=== PATIENT | male | born 1995 | race African-American/Black ===

== ENCOUNTER 2019-05-08 13:51 | Emergency (ER) | payer MEDICAID ==
[~2019-05-08] VITALS: Ht 190.5 cm; Wt 86.2 kg
[~2019-05-08 13:51] MED LIST: KEPPRA500 M4 ORAL; LORazepam Inj 2mg/ml 1ml IV ONE; levETIRAcetam 500 MG in D5W 110 ML IV ONE
--- NOTE | 2019-05-08 14:00 | NUR ---
ED Nurse Note: Pt came into ED from having a seizure today around 0400, lasting 1 minute. Pt states he lost consciousness, but was lying in bed when sizure occurred. Pt denies hitting head, biting tongue, RUDOLPH, nausea, pain. Pt is currently alert and orientedx4, awake, but occasionally falls asleep and become very drowsy. Pt is arousable to name. Pt is set up on monitor.
[2019-05-08 14:05] VITALS: BP 134/75
[2019-05-08 14:25] LABS: APPEARANCE,URINE CLEAR; BILIRUBIN, URINE NEGATIVE (NEGATIVE); COLOR,URINE PALE YELLOW; GLUCOSE, URINE (UA) NEGATIVE (NEGATIVE); KETONES,URINE 1+ (NEGATIVE); LEUKOCYTE ESTERASE ,URINE NEGATIVE (NEGATIVE); NITRITE,URINE NEGATIVE (NEGATIVE); PH,URINE 5 (4.5-8.0); PROTEIN,URINE 2+ (NEGATIVE); UROBILINOGEN,URINE NORMAL MG/DL (0.0-1.0)
[2019-05-08] MEDS ORDERED: LORazepam Inj 2mg/ml 1ml ONE (14:28)
[2019-05-08 14:29] LABS: EOSINOPHILS % (AUTO) 0.3 % (0.0-3.0); HEMOGLOBIN 13.8 G/DL (14.2-18.0); LYMPHOCYTES % (AUTO) 17.1 % (20.0-45.0); MEAN CORPUSCULAR VOLUME 86 FL (80-99); MONOCYTES % (AUTO) 10.6 % (1.0-10.0); NEUTROPHILS % (AUTO) 71.1 % (45.0-75.0); PLATELET COUNT 237 K/UL (150-450); RED BLOOD COUNT 4.76 M/UL (4.70-6.10); RED CELL DISTRIBUTION WIDTH 11.3 % (11.6-14.8); WHITE BLOOD COUNT 5.2 K/UL (4.8-10.8)
[2019-05-08] MEDS ORDERED: LEVETIRACETAM IVPB ONE (14:29)
[2019-05-08] MEDS ORDERED: [UNRECOGNIZED DRUG - OTHER] IVPB ONE (14:29)
--- NOTE | 2019-05-08 14:29 | Emergency Room Report ---
History of Present Illness General Chief Complaint: Seizure Source: Patient, Family Member, EMS Present Illness HPI Patient presents post witnessed tonic-clonic seizure. He states he is missed doses of his Keppra. He also drinks alcohol. He denies any trauma. Has a slight headache. His last seizure before today was a month ago. EMS transported the patient. He denies pain to the triage nurse but complains about 2/10 headache which is diffuse. He states he usually gets headaches when he has seizures. Patient denies neck pain, chest pain, nausea, vomiting, diarrhea, dysuria. He has not been eating well. No fevers, chills, sore throat, palpitations, abdominal pain, shortness of breath, joint pain, rashes, depression, anxiety, visual changes, dizziness. Allergies: Coded Allergies: No Known Allergies (Unverified , 05/08/19) Patient History Past Medical History: see triage record Social History: Reports: smoking, alcohol use, drug use Social History Narrative With brother Reviewed Nursing Documentation: PMH: Agreed; PSxH: Agreed Nursing Documentation-PMH Hx Seizures: Yes Review of Systems All Other Systems: negative except mentioned in HPI Physical Exam Vital Signs Date Time Temp Pulse Resp B/P (MAP) Pulse Ox O2 Delivery O2 Flow Rate FiO2 05/08/19 13:41 98.2 102 18 140/80 (100) 98 Room Air Sp02 EP Interpretation: reviewed, normal General Appearance: well appearing, no apparent distress, non-toxic, other - GCS 14 slightly postictal Head: normocephalic Eyes: bilateral eye PERRL, bilateral eye EOMI, bilateral eye Scleral Injection ENT: moist mucus membranes - No lingual trauma Neck: supple, no bony tend Respiratory: chest non-tender, lungs clear, normal breath sounds Cardiovascular #1: regular rate, rhythm, no edema Cardiovascular #2: 2+ radial (R) Gastrointestinal: normal inspection, normal bowel sounds, non tender, no mass, non-distended, scaphoid Genitourinary: no CVA tenderness Musculoskeletal: back normal, normal range of motion, gait/station normal Neurologic: alert, motor strength/tone normal, vmware consultant III-XII nml as tested, oriented - X2, DTRs symmetric, sensory intact, cerebellar normal, speech normal Psychiatric: mood/affect normal, no suicidal/homicidal ideation Skin: no rash, warm/dry Procedures Critical Care Time Critical Care Time Total Critical Care Time: 30 min bedside evaluation and treatment excludes procedures (EKG). Reason for critical care: Treatment of seizures and evaluation of abnormal EKG, discussion with [facility] Possible complications: hypotension, hypertension, [place], shock, arrhythmias, metabolic acidosis, end organ damage, respiratory failure. Interventions: Ativan, Keppra, aspirin, nitro paste, metoprolol. Course: Patient presents post tonic-clonic seizure. Treated with Keppra and Ativan. Labs unremarkable. Abnormal EKG with possible STEMI. Patient treated medically. Fax EKG and discussion with receiving hospital physician. She consulted with her cardiology staff. Consideration of emergent transfer. Discussion with brother and patient. EKG repeated with left ventricular hypertrophy. Troponin return is normal. Repeat evaluation with patient. Consultations: nursing staff, EMS, family, [facility] STEMI team Performed by: Dr. Quintana Tolerated well condition = serious Medical Decision Making Diagnostic Impression: Primary Impression: Seizure Additional Impressions: Cocaine abuse Abnormal EKG ER Course Patient presents post seizure with history of noncompliance. Differential includes breakthrough seizure, electrolyte imbalance, noncompliance others. Patient has a nonfocal neurologic exam at this time and CT is not indicated. Patient evaluated with EKG and labs. Patient treated with 1 mg of Ativan and a half loading dose of Keppra. EKG completed at 1500. Sinus rhythm. ST elevation of V2 and V3. This might be J-point elevation although with the history of cocaine abuse concern for possible STEMI. Patient is denying chest pain at this time. Aspirin, metoprolol and nitrates given. Will repeat EKG and troponin added. Sending EKG to [facility] for possible transfer. Discussed Dr. Avendaño [facility] showing to cath team. (There was a delay with fax not going through.) Discussed abnormal EKG with patient and brother. Second EKG LVH and J point elevation 1534. Discussed with Dr. Avendaño who declines at this time. States if troponin + to recall. Troponin negative. Patient sleeping. Nonfocal neurologic exam. Discussed treatment plan with patient. Discussed the need for extension of cocaine and consideration for Cocaine Anonymous. No medical emergency. Patient stable for outpatient observation and treatment. Laboratory Tests Test 05/08/19 14:15 05/08/19 15:10 White Blood Count 5.2 K/UL (4.8-10.8) Red Blood Count 4.76 M/UL (4.70-6.10) Hemoglobin 13.8 G/DL (14.2-18.0) L Hematocrit 41.0 % (42.0-52.0) L Mean Corpuscular Volume 86 FL (80-99) Mean Corpuscular Hemoglobin 29.1 PG (27.0-31.0) Mean Corpuscular Hemoglobin Concent 33.8 G/DL (32.0-36.0) Red Cell Distribution Width 11.3 % (11.6-14.8) L Platelet Count 237 K/UL (150-450) Mean Platelet Volume 5.7 FL (6.5-10.1) L Neutrophils (%) (Auto) 71.1 % (45.0-75.0) Lymphocytes (%) (Auto) 17.1 % (20.0-45.0) L Monocytes (%) (Auto) 10.6 % (1.0-10.0) H Eosinophils (%) (Auto) 0.3 % (0.0-3.0) Basophils (%) (Auto) 1.0 % (0.0-2.0) Urine Color Pale yellow Urine Appearance Clear Urine pH 5 (4.5-8.0) Urine Specific [place] 1.025 (1.005-1.035) Urine Protein 2+ (NEGATIVE) H Urine Glucose (UA) Negative (NEGATIVE) Urine Ketones 1+ (NEGATIVE) H Urine Blood 3+ (NEGATIVE) H Urine Nitrite Negative (NEGATIVE) Urine Bilirubin Negative (NEGATIVE) Urine Urobilinogen Normal MG/DL (0.0-1.0) Urine Leukocyte Esterase Negative (NEGATIVE) Urine RBC 2-4 /HPF (0 - 0) H Urine WBC 0-2 /HPF (0 - 0) Urine Squamous Epithelial Cells Occasional /LPF Urine Bacteria Occasional /HPF (NONE) Urine Mucus Few /LPF (NONE/OCC) H Sodium Level 140 MMOL/L (136-145) Potassium Level 4.1 MMOL/L (3.5-5.1) Chloride Level 102 MMOL/L (98-107) Carbon Dioxide Level 25 MMOL/L (21-32) Anion Gap 13 mmol/L (5-15) Blood Urea Nitrogen 10 mg/dL (7-18) Creatinine 1.1 MG/DL (0.55-1.30) Estimate Glomerular Filtration Rate > 60 mL/min (>60) Glucose Level 105 MG/DL (74-106) Calcium Level 9.4 MG/DL (8.5-10.1) Total Bilirubin 0.4 MG/DL (0.2-1.0) Aspartate Amino Transferase (AST) 26 U/L (15-37) Alanine Aminotransferase (ALT) 21 U/L (12-78) Alkaline Phosphatase 52 U/L (46-116) Total Creatine Kinase 539 U/L (26-308) H Total Protein 8.3 G/DL (6.4-8.2) H Albumin 4.0 G/DL (3.4-5.0) Globulin 4.3 g/dL Albumin/Globulin Ratio 0.9 (1.0-2.7) L Urine Opiates Screen Negative (NEGATIVE) Urine Barbiturates Screen Negative (NEGATIVE) Phencyclidine (PCP) Screen Negative (NEGATIVE) Urine Amphetamines Screen Negative (NEGATIVE) Urine Benzodiazepines Screen Negative (NEGATIVE) Urine Cocaine Screen Positive (NEGATIVE) H Urine Marijuana (THC) Screen Positive (NEGATIVE) H Serum Alcohol < 3 mg/dL Troponin I 0.013 ng/mL (0.000-0.056) EKG Diagnostic Results Rate: normal Rhythm: NSR ST Segments: other - ST elevation septal leads Other Impression Second EKG with left ventricular hypertrophy and no findings of STEMI. ASA given to the pt in ED: Yes Rhythm Strip Diag. Results EP Interpretation: yes Rhythm: NSR, no PVC's, no ectopy Chest X-Ray Diagnostic Results Chest X-Ray Diagnostic Results : Chest X-Ray Ordered: Yes # of Views/Limited/Complete: 1 View Indication: Other EP Interpretation: Yes Interpretation: no consolidation, no effusion, no pneumothorax Impression: No acute disease Electronically Signed by: Electronically signed by Wicho Quintana MD Last Vital Signs Date Time Temp Pulse Resp B/P (MAP) Pulse Ox O2 Delivery O2 Flow Rate FiO2 05/08/19 16:48 98.2 99 16 125/76 99 Room Air 05/08/19 14:05 100 Status: improved Disposition: HOME, SELF-CARE Condition: Improved Scripts Levetiracetam (Keppra) 250 Mg Tablet 500 MG ORAL EVERY 12 HOURS, #50 TAB 0 Refills Prov: Wicho Qunitana MD 05/08/19 Wicho Quintana MD May 08, 2019 14:29
[2019-05-08] MEDS ORDERED: levETIRAcetam 500mg vial IV ONE (14:34)
[2019-05-08 14:45] LABS: ANION GAP 13 mmol/L (5-15); BLOOD UREA NITROGEN 10 mg/dL (7-18); CALCIUM 9.4 MG/DL (8.5-10.1); CARBON DIOXIDE 25 MMOL/L (21-32); CHLORIDE 102 MMOL/L (98-107); CREATININE 1.1 MG/DL (0.55-1.30); POTASSIUM 4.1 MMOL/L (3.5-5.1); SODIUM 140 MMOL/L (136-145)
[2019-05-08 14:49] LABS: ALANINE AMINOTRANSFERASE 21 U/L (12-78); ALBUMIN/GLOBULIN RATIO 0.9 (1.0-2.7); ALKALINE PHOSPHATASE 52 U/L (46-116); ASPARTATE AMINO TRANSFERASE 26 U/L (15-37); BILIRUBIN,TOTAL 0.4 MG/DL (0.2-1.0); CREATINE KINASE 539 U/L (26-308)
[2019-05-08] MEDS ORDERED: Metoprolol Tartrate 5mg/5ml Inj IVP STA (15:05)
--- NOTE | 2019-05-08 15:05 | NUR ---
EKG FAXED TO [facility] ER FOR EVALUATION OF STEMI
[2019-05-08] MEDS ORDERED: Nitroglycerin 2% oint pkt TOPIC ONE (15:15)
--- NOTE | 2019-05-08 15:35 | NUR ---
REPEAT EKG DONE AND FAXED TO ER FOR EVAL. DR BLAIR SPOKE TO ED DOCTOR
--- NOTE | 2019-05-08 15:45 | NUR ---
PER DR BLAIR PATIENT IS NOT FOR TRANSFER TO [facility]
[2019-05-08] MEDS ORDERED: KEPPRA500 MG ORAL (16:37)
[2019-05-08 16:48] VITALS: BP 125/76
--- NOTE | 2019-05-08 16:48 | NUR ---
ER DISCHARGE NOTE: Patient is cleared to be discharged per ERMD, pt is aox4, on room air, with stable vital signs. pt was given dc and prescription instructions, pt was able to verbalize understanding, pt id band and iv site removed without complications. pt is able to ambulate with steady gait. pt took all belongings. Pt educated about cocaine use.
--- NOTE | 2019-05-08 17:39 | Diagnostic Imaging Report ---
Indication: Chest pain Technique: One view of the chest Comparison: none Findings: Lungs and pleural spaces are clear. Heart size is normal. Impression: No acute process
== END 2019-05-08 16:48 | disposition home or self-care (01) ==
LOC: EDBD 13:51 → EMR 14:20
DX: G40.909 Epilepsy, unspecified, not intractable, without status epilepticus (principal); I51.7 Cardiomegaly; F14.10 Cocaine abuse, uncomplicated; F10.10 Alcohol abuse, uncomplicated; F12.10 Cannabis abuse, uncomplicated; R94.31 Abnormal electrocardiogram [ECG] [EKG]; F17.200 Nicotine dependence, unspecified, uncomplicated; Y90.0 Blood alcohol level of less than 20 mg/100 ml; Z79.899 Other long term (current) drug therapy
CPT/HCPCS: 36415; 71045; 80053; 80307; 81003; 82550; 82962; 84484; 85025; 93005; 96361; 96365; 96375; G0480; J1953; J7030; Z7502; 99291